=== PATIENT | female | born 1970 | race African-American/Black ===

== ENCOUNTER 2025-04-11 17:07 | Emergency (ER) | payer OTHER, SELFPAY ==
[2025-04-11 17:15] VITALS: BP 121/69; PULSE 63; RESP 16; TEMP 36.3; O2SAT 100
--- NOTE | 2025-04-11 17:37 | ED_ITS ---
HPI - URI/Sore Throat General Chief Complaint: Upper Respiratory Infection Stated Complaint: Wheezing/Cough Source: patient Mode of arrival: ambulatory Limitations: no limitations History of Present Illness HPI Narrative: This is a pleasant 55 y/o female that presents to the urgent care with reports of cough, wheezing, and chest congestion for over a week. she has been using her albuterol, otc cough medication, and neb treatments to help with symptoms. patient denies any fever, chills, she states that she feels as if her chest is getting tighter. No chest pain, shortness breath only with walking long dista nces. She denies any other complaints or concerns. MD elicited complaint: nasal congestion Onset (ago): week(s) (1) Consistency: intermittent Severity: mild Description of mucous: clear Able to tolerate fluids by mouth: Yes Relieving factors: OTC cold medicine, cough suppressant and other (neb treatment and inhalers) Associated symptoms: denies other symptoms Treatments prior to arrival: none Related Data Home Medications ?Medication ?Instructions ?Recorded ?Confirmed ?Last Taken ?Type albuterol sulfate 90 mcg/actuation inhalation 04/11/25 Unknown History aerosol inhaler progesterone micronized 100 mg mg 04/11/25 Unknown Hi story capsule semiglutide 04/11/25 Unknown History umeclidinium 62.5 mcg-vilanterol inhalation 04/11/25 Unknown History 25 mcg/actuation powdr for inhalation Allergies Allergy/AdvReac Type Severity Reaction Status Date / Time metronidazole Allergy Intermediate RASH/HIVES Verified 04/11/25 17:31 penicillin V Allergy Intermediate RASH HIVES Verified 04/11/25 17:31 Exam Const: General: cooperative, healthy appearing, comfortable, no acute distress and well developed Nutritional Appearance: obese Orientation/consciousness: oriented to person, oriented to place, oriented to time and patient oriented x3 Limitations: no limitations HENMT: Head: normal to inspection Ears: hearing grossly normal bilaterally Face/Nose/Sinus: Normal external nose present and Normal nares present Face and sinus: normal facial exam, sinuses nontender, face symmetric and normal transillumination of the sinuses Mouth: Yes Normal oral and palatal mucosa present, Yes lip normal and Yes tongue normal Teeth and gingiva: dentition normal and gingiva normal Throat: posterior oropharynx normal, tonsils normal and uvula midline Eyes: General: appearance normal, both eyes and all related structures Visual Das: normal visual das by confrontation Neck: Neck: normal visual inspection, full ROM and no lymphadenopathy Thyroid: thyroid normal Carotids: normal carotid upstroke Lymphatic: no lymphadenopathy noted Chest: Chest palpation & inspection: normal inspection of the chest and normal palpation of entire chest wall Resp: Effort & Inspection: normal respiratory effort and Actively coughing Auscultation: wheezes expiratory wheezes (very fine in upper lobes) and diminis hed lung sounds bilateral in the lower lung das Cardio: Jugular venous distension: no JVD Rate: regular rate Rhythm: regular rhythm Heart sounds: S1 normal heart sound present and S2 normal heart sound present GI: Inspection: normal to inspection Auscultation: normal bowel sounds Skin: General skin exam: normal color and no rashes or lesions noted Neuro: General: oriented to person, oriented to place, oriented to time and patient oriented x3 Cranial nerves: Yes CN's II-XII intact bilaterally Cognition (Neuro): normal cognition Speech: normal speech Extrem: General: normal to inspection, full ROM and capillary refill normal Psych: Appearance: grossly normal and well kempt Mental Status: mental status grossly normal Speech and movement: Normal speech and movement present Affect: normal affect Course Course Emergency Course: This is a pleasant 55 y/o female that presents to the urgent care with reports of cough, wheezing, and chest congestion for over a week. she has been using her albuterol, otc cough medication, and neb treatments to help with symptoms. patient denies any fever, chills, she states that she feels as if her chest is getting tighter. No chest pain, shortness breath only with walking long distances. She denies any other complaints or concerns. vitals stable Patient noted to have very fine wheezes in the upper lobes bilaterally, no rhonchi or distress. explained treatment especially with history. Answered all questions to her satisfaction she is agreeable to this plan. Educated patient to Increase fluids, Rest, Continue with Antibiotic and prednisone as prescribed until completed. continue with symptomatic management: -? Cough medication per package instructions -? Tylenol and motrin for fever and pain -? Cough drops for sore throat and cough - ? Mucinex for congestion -? Vicks vapor rub -? Cool mist vaporizer Follow up with your primary MD in the next 2-3 days for further exam or Present to the ER for any worrisome sign or symptom. Level of Care: Express Care Visit Vital Signs Vital signs: Vital Signs Temperature 97.3 F L 04/11/25 17:15 Pulse Rate 63 04/11/25 17:15 Respiratory Rate 16 04/11/25 17:15 Blood Pressure 121/69 04/11/25 17:15 Pulse Oximetry 100 04/11/25 17:15 Oxygen Delivery Room Air 04/11/25 17:15 Temperature 97.3 F L 04/11/25 17:15 Pulse Rate 63 04/11/25 17:15 Respiratory Rate 16 04/11/25 17:15 Blood Pressure 121/69 04/11/25 17:15 Pulse Oximetry 100 04/11/25 17:15 Oxygen Delivery Room Air 04/11/25 17:15 MDM MDM Narrative Medical decision making narrative: This is a pleasant 55 y/o female that presents to the urgent care with reports of cough, wheezing, and chest congestion for over a week. she has been using her albuterol, otc cough medication, and neb treatments to help with symptoms. patient denies any fever, chills, she states that she feels as if her chest is getting tighter. No chest pain, shortness breath only with walking long distances. She denies any other complaints or concerns. vitals stable Patient noted to have very fine wheezes in the upper lobes bilaterally, no rhonchi or distress. explained treatment especially with history. Answered all questions to her satisfaction she is agreeable to this plan. Educated patient to Increase fluids, Rest, Continue with Antibiotic and prednisone as prescribed until completed. continue with symptomatic management: -? Cough medication per package instructions -? Tylenol and motrin for fever and pain -? Cough drops for sore throat and cough - ? Mucinex for congestion -? Vicks vapor rub -? Cool mist vaporizer Follow up with your primary MD in the next 2-3 days for further exam or Present to the ER for any worrisome sign or symptom. Differential Diagnosis Differential Diagnosis: bronchitis, acute asthma exacerbation Medical Records I have reviewed the following patient records and this information was taken into consideration when formulating the assessment and plan.: previous clinic visits Discharge Plan Discharge Clinical Impression: Bronchitis Patient Disposition: Home Condition: Stable Instructions: Antibiotic Form, Acute Bronchitis (ED) Additional Instructions: Increase fluids Rest Continue with Antibiotic and prednisone as prescribed until completed. Continue with symptomatic management: -? Cough medication per package instructions -? Tylenol and motrin for fever and pain -? Cough drops for sore throat and cough -? Mucinex for congestion -? Vicks vapor rub -? Cool mist vaporizer Follow up with your primary MD in the next 2-3 days for further exam or Present to the ER for any worrisome sign or symptom Patient Language: Tong[place] Prescriptions: New prednisone 20 mg tablet 20 mg PO BID Qty: 10 0RF cefdinir 300 mg capsule 300 mg PO Q12H Qty: 14 0RF No Action albuterol sulfate 90 mcg/actuation HFA aerosol inhaler INHALATION progesterone micronized 100 mg capsule umeclidinium-vilanterol 62.5-25 mcg/actuation blister with device INHALATION semiglutide Follow-up/Referrals: Alida,Andrés Reed [Primary Care Provider] Time of Disposition: 17:48
== END 2025-04-11 17:35 | disposition home or self-care (01) ==
PROVIDERS: Emergency Provider Nurse Practitioner Family; PCP Internal Medicine Infectious Disease
DX: J40 Bronchitis, not specified as acute or chronic (principal)
CPT/HCPCS: 99203; G0463